=== PATIENT | male | born 1995 | race African-American/Black ===

== ENCOUNTER 2024-12-15 03:49 | Emergency (ER) | payer MEDICAID ==
[~2024-12-15] VITALS: Ht 177.8 cm; Wt 68.2 kg
[2024-12-15 04:03] VITALS: TEMP 98.1
[2024-12-15] MEDS: CefTRIAXone SODIUM 1 GM/VIAL IM ONE (04:59)
[2024-12-15] MEDS: LIDOCAINE/PF 1% 2 ML VIAL IM ONE (05:00)
[2024-12-15] MEDS: DOXYCYCLINE HYCLATE 100 MG TABLET PO ONE (05:01)
[2024-12-15 05:11] VITALS: BP 110/70; PULSE 65; RESP 14; O2SAT 100
== END 2024-12-15 05:22 | disposition home or self-care (01) ==
LOC: EMS 03:57
DX: R36.9 Urethral discharge, unspecified (principal); R30.0 Dysuria; F12.90 Cannabis use, unspecified, uncomplicated; Z20.2 Contact with and (suspected) exposure to infections with a predominantly sexual mode of transmission; Z91.09 Other allergy status, other than to drugs and biological substances
CPT/HCPCS: 99283; 96372; J0696; J3490